=== PATIENT | male | born 1965 | race Caucasian/White ===

== ENCOUNTER 2017-08-05 17:20 | Inpatient (IN) | payer OTHER ==
[~2017-08-05] VITALS: Ht 172.7 cm; Wt 52.2 kg
[~2017-08-05 17:20] MED LIST: MIDAZOLAM HCL 2 MG/2 ML VIAL IV ONE; PHENYLEPH/NS 1000 MCG/10 ML SYR IV ONE; PROPOFOL 200 MG/20 ML AMP IV ONE; ROCURONIUM INJ 50 MG/5 ML SYRINGE IV PUSH ONE; ePHEDrine/NS 25 MG/5 ML SYRINGE IV ONE
[2017-08-05 17:21] VITALS: O2SAT 100
[2017-08-05] MEDS ORDERED: ceFAZolin 2 GM PREMIX 50 ML ONE (17:28)
[2017-08-05] MEDS ORDERED: DIPHTH/TETANUS/ACEL PERTUSSIS (BOOSTER) 0.5 ML VIAL/PFS IM ONE (17:29)
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
[2017-08-05 17:51] LABS: AUTOMATED NEUTROPHIL # 21.6 TH/MM3 (1.8-7.7); BASOPHIL # 0.1 TH/MM3 (0-0.2); BASOPHIL % 0.2 % (0.0-2.0); EOSINOPHIL # 0.2 TH/MM3 (0-0.4); EOSINOPHIL % 0.7 % (0.0-4.0); HEMOGLOBIN 13.2 GM/DL (13.0-17.0); LYMPHOCYTE # 1.7 TH/MM3 (1.0-4.8); MEAN CELL VOLUME 95.7 FL (80.0-100.0); MEAN CORPUSCULAR HEMOGLOBIN 32.4 PG (27.0-34.0); MEAN CORPUSCULAR HGB CONC 33.9 % (32.0-36.0); MEAN PLATELET VOLUME 6.8 FL (7.0-11.0); MONO % 5.2 % (0.0-8.0); MONOCYTE # 1.3 TH/MM3 (0-0.9); NEUT % 86.9 % (16.0-70.0); PLATELET COUNT 321 TH/MM3 (150-450); RED BLOOD COUNT 4.08 MIL/MM3 (4.50-5.90); RED CELL DISTRIBUTION WIDTH 12.9 % (11.6-17.2); WHITE BLOOD COUNT 24.8 TH/MM3 (4.0-11.0)
[2017-08-05] MEDS ORDERED: SUCCINYLCHOLINE CHLORIDE 200 MG/10 ML VIAL ONE (18:03)
[2017-08-05] MEDS ORDERED: ETOMIDATE 40 MG/20 ML VIAL ONE (18:03)
[2017-08-05 18:07] LABS: PROTHROMBIN TIME - PATIENT 9.8 SEC (9.8-11.6)
[2017-08-05] MEDS ORDERED: ONDANSETRON HCL 4 MG/2 ML VIAL ONE (18:08)
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
[2017-08-05] MEDS ORDERED: VANCOMYCIN HCL 1000 MG VIAL ONE (18:12)
[2017-08-05] MEDS ORDERED: cefTRIAXone 250 MG VIAL ONE (18:12)
[2017-08-05] MEDS ORDERED: MIDAZOLAM 100 MG/100 ML INJ 100 ML ONE (18:12)
[2017-08-05 18:15] VITALS: O2SAT 95
[2017-08-05] MEDS ORDERED: SUCCINYLCHOLINE CHLORIDE 100 MG/5 ML SYRINGE IV PUSH ONE ×2 (18:15→18:30)
[2017-08-05] MEDS ORDERED: PROPOFOL 1000 MG/100 ML INJ 100 ML ONE (18:15)
[2017-08-05] MEDS ORDERED: ETOMIDATE 20 MG/10 ML VIAL IV PUSH ONE ×2 (18:15→18:30)
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
[2017-08-05] MEDS ORDERED: ROCURONIUM INJ 50 MG/5 ML VIAL ONE (18:23)
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
[2017-08-05] MEDS ORDERED: PROPOFOL 1000 MG/100 ML INJ 100 ML IV PRN (18:30)
[2017-08-05] MEDS ORDERED: cefTRIAXone INJ 2,000 MG in SODIUM CHLORIDE 0.9% INJ 100 ML IV ONE (18:30)
[2017-08-05] MEDS ORDERED: IOHEXOL 350 MG/ML 10 ML VIAL (for RAD DIAG) IVCONTRAST ONE (18:30)
[2017-08-05] MEDS ORDERED: VANCOMYCIN INJ 1,000 MG in SODIUM CHLOR 0.9% 250 ML INJ 250 ML IV ONE (18:30)
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
[2017-08-05] MEDS ORDERED: LIDOCAINE 1%/EPINEPHrine 1:100,000 SOLN 20 ML VIAL ONE (18:51)
[2017-08-05] MEDS ORDERED: GENTAMICIN SULFATE 80 MG/2 ML VIAL ONE (18:51)
[2017-08-05] MEDS ORDERED: ceFAZolin INJ 1,000 MG VIAL ONE (18:51)
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
[2017-08-05] MEDS ORDERED: levETIRAcetam 500 MG/5 ML VIAL IV ONE (18:54)
[2017-08-05] MEDS ORDERED: MANNITOL INJ 50 ML ONE (18:56)
[2017-08-05] MEDS ORDERED: CHLORHEXIDINE GLUCONATE 2 % 1 PACK (2 CLOTHS) TOP PRN (19:00)
[2017-08-05] MEDS ORDERED: LACTULOSE SYRUP 20 GM/30 ML CUP PO PRN (19:00)
[2017-08-05] MEDS ORDERED: BISACODYL 10 MG SUPP RECTAL PRN (19:00)
[2017-08-05] MEDS ORDERED: MISCELLANEOUS NURSING INFORMATION XX SCH (19:00)
[2017-08-05] MEDS ORDERED: MAGNESIUM HYDROXIDE SUSP 30 ML CUP PO PRN (19:00)
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
--- NOTE | 2017-08-05 19:35 | RADRPT ---
EXAM DATE/TIME: 08/05/2017 18:58 [facility] COMPARISON: No previous studies available for comparison. INDICATIONS : Post procedure, intubation, ng tube placement. MEDICAL HISTORY : None. SURGICAL HISTORY : None. ENCOUNTER: Initial ACUITY: 1 day PAIN SCORE: 0/10 LOCATION: Bilateral chest FINDINGS: A single view of the chest demonstrates endotracheal tube in good position. NG coiled in stomach. No focal consolidation or effusion. Heart size normal. No pneumothorax. CONCLUSION: 1. Endotracheal tube and nasogastric tube in good position. No focal consolidation or effusion. Salo Alford MD on August 05, 2017 at 19:31 Board Certified Radiologist. This report was verified electronically.
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
[2017-08-05] MEDS: FAMOTIDINE 20 MG/2 ML VIAL IV PUSH SCH (21:00)
[2017-08-05] MEDS: DOCUSATE SODIUM 50 MG/SENNA 8.6 MG TAB PO SCH (21:00)
[2017-08-05 21:35] VITALS: O2SAT 100
[2017-08-05 22:00] VITALS: PULSE 75
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
--- NOTE | 2017-08-05 22:18 | PD.OP ---
Operative Report Date of Surgery: Aug 05, 2017 Preoperative Diagnosis: (1) Open skull fracture (2) Traumatic intraparenchymal hemorrhage Open depressed left temporal bone fracture Traumatic left temporal parenchymal hemorrhagic contusion Postoperative Diagnosis: (1) Open skull fracture (2) Traumatic intraparenchymal hemorrhage Open depressed left temporal bone fracture Traumatic left temporal parenchymal hemorrhagic contusion Procedure: 1. Elevation and debridement open depressed left temporal bone fracture 2. Evacuation left temporal hemorrhagic contusion 3. Placement of left frontal intracranial pressure monitor Anesthesia: General Surgeon: Marty Cameron Thread Twister(s): Mychal Larios Operation and Findings: Findings: Markedly depressed left temporal bone fracture. Significant underlying parenchymal injury with proximal contusion and significant parenchymal laceration. Procedure in detail: Patient was brought into the operative room and general endotracheal anesthesia induced without difficulty Lines were established for anesthesia WHIT hose and sequential compression devices were placed The patient was placed in supine position on the [place] horseshoe headrest with the head turned opposite the left temporal fracture site. The scalp overlying the fracture site was shaved with clippers and sterilely prepped and draped Appropriate timeout procedure was performed with all personnel present and in agreement Preoperative imaging studies were reviewed and the location and side of the fracture site and verified. 1% Xylocaine with epinephrine was used for local infiltration of the incision site which was made in a curvilinear fashion over the fracture site by working through the existing large left temporal laceration and extending the anterior edge medially and the posterior edge in a curvilinear fashion in front of the left ear. Left frontotemporal incision site was carried sharply down to the cranium. The periosteal elevator was used for subperiosteal elevation of the muscle and fascia away from the cranium at the fracture site. The deep self-retaining retractors were placed. The TPS drill with a 5 mm bone bur was used to remove bone at the edges of the fracture site sufficient to allow elevation of the bone edges. There is noted to be brain parenchyma coming forth through the left temporal incision prior to the start of the procedure with additional parenchyma noted coming forth through a dural laceration caused by the depressed fracture. A central depressed piece of bone was removed temporarily, allowing coagulation of the dura for hemostasis as well as elevation of the surrounding areas of fracture. The brain parenchyma was closely inspected. A rather large area of per external hematoma spontaneously decompressed once the fracture was removed and the dural edges elevated. The areas of bleeding at the left temporal parenchyma were carefully controlled with the bipolar forceps. The brain was soft and pulsatile after the hematoma was evacuated. The previously depressed piece of temporal bone was then replaced and all of the fragment secured with titanium maxillofacial plates and screws. The region was well irrigated with antibiotic irrigation There was no significant bleeding at the time of closure The 7 mm flat fluted drain was left at the epidural and subgaleal space and brought out through a incision at the left parietal region and secured to the skin with nylon suture. Closure was performed with 2-0 Vicryl interrupted for the temporalis muscle and galea with radha for the skin closure Next, a small incision was made in the left frontal scalp approximately 10 cm above the midline in the supraorbital region and carried sharply down to the cranium. The hand drill was used to place a single twist drill opening in the dura perforated with 18-gauge spinal needle. The ICP bolt was secured to the cranium The ICP read was zeroed and placed intracranially with initial ICP of 8 mm water with good waveform. A sterile dressing of Telfa 4 x 4's and a head stockinette was placed. All counts were correct at the end of the case Estimated blood loss was 200 cc No specimen was sent to pathology The patient was taken to recovery room in stable condition Marty Cameron MD Aug 05, 2017 22:18
[2017-08-05] MEDS: levETIRAcetam INJ 500 MG in SODIUM CHLORIDE 0.9% INJ 100 ML IV SCH (22:36)
[2017-08-05 22:50] VITALS: O2SAT 100
[2017-08-05] MEDS: fentaNYL DRIP 250 ML IV PRN (23:58)
[2017-08-05] MEDS: PROPOFOL 1000 MG/100 ML INJ 100 ML IV PRN (23:59)
[2017-08-06] VITALS (18 sets, daily range): BP systolic 104–152; BP diastolic 52–64; PULSE 55–77; RESP 16–18; TEMP 98–98.7; O2SAT 99–100
[2017-08-06] MEDS: CHLORHEXIDINE GLUCONATE 2 % 1 PACK (2 CLOTHS) TOP SCH (04:00)
--- NOTE | 2017-08-06 05:23 | RADRPT ---
EXAM DATE/TIME: 08/06/2017 04:44 [facility] COMPARISON: CT BRAIN W/O CONTRAST, August 05, 2017, 17:40. INDICATIONS : Evaluate head trauma. RADIATION DOSE: 54.79 CTDIvol (mGy) ; Tabletop CT Head MEDICAL HISTORY : Non-responsive. SURGICAL HISTORY : Non-responsive. ENCOUNTER: Subsequent ACUITY: 2 days PAIN SCALE: Non-responsive LOCATION: cranial TECHNIQUE: Multiple contiguous axial images were obtained of the head. Using automated exposure control and adj ustment of the mA and/or kV according to patient size, radiation dose was kept as low as reasonably a chievable to obtain optimal diagnostic quality images. DICOM format image data is available electro nically for review and comparison. FINDINGS: Interval surgical repair of the depressed left parietal skull fracture. No approximation of the frac ture fragments and craniotomy hardware is in place. There is a surgical drain in the subgaleal regio n of the left parietal. Intra-cerebral monitor probe in the left frontal region. There has been a s ignificant reduction in the amount of midline shift with less than 2 mm midline shift towards the rig ht and the left parietal mid convexity hematoma has decreased in size and now measures 2.6 cm (previo usly measured 3.1 cm. Subarachnoid hemorrhage in the mid and high convexities on the left side. No focal opacities or blood seen in the right hemisphere. The no intraventricular blood. The posterior fossa structures are grossly intact. CONCLUSION: Interval surgical repair of depressed left parietal skull fracture with good approximation of the dexter varium. Persistent left subarachnoid hemorrhage, decreasing in size left parietal hematoma and decre asing midline shift towards the right. Joselo Colunga MD on August 06, 2017 at 5:17 Board Certified Radiologist. This report was verified electronically.
--- NOTE | 2017-08-06 05:46 | RADRPT ---
EXAM DATE/TIME: 08/06/2017 05:05 [facility] COMPARISON: CHEST SINGLE AP, August 05, 2017, 18:58. INDICATIONS : Shortness of breath. MEDICAL HISTORY : None. SURGICAL HISTORY : None. ENCOUNTER: Subsequent ACUITY: 2 days PAIN SCORE: Non-responsive. LOCATION: Bilateral chest FINDINGS: ET tube tip well above the bella. Gastric tube traverses the [id number]. The lungs are symmetri marisol aerated. No focal infiltrates seen. Both hemidiaphragms are well delineated. Heart size is n ormal. CONCLUSION: The lungs are clear. Joselo Colunga MD on August 06, 2017 at 5:44 Board Certified Radiologist. This report was verified electronically.
[2017-08-06] MEDS: SODIUM CHLOR 0.9% 1000 ML INJ 1,000 ML IV SCH ×2 (05:55→16:29)
[2017-08-06 06:13] LABS: AUTOMATED NEUTROPHIL # 5.1 TH/MM3 (1.8-7.7); BASOPHIL % 0.4 % (0.0-2.0); EOSINOPHIL # 0.1 TH/MM3 (0-0.4); EOSINOPHIL % 1.5 % (0.0-4.0); HEMATOCRIT 30.2 % (39.0-51.0); HEMOGLOBIN 10.4 GM/DL (13.0-17.0); LYMPH % 15.4 % (9.0-44.0); MEAN CELL VOLUME 95.7 FL (80.0-100.0); MEAN CORPUSCULAR HGB CONC 34.4 % (32.0-36.0); MEAN PLATELET VOLUME 6.7 FL (7.0-11.0); MONO % 6.3 % (0.0-8.0); MONOCYTE # 0.4 TH/MM3 (0-0.9); NEUT % 76.4 % (16.0-70.0); PLATELET COUNT 206 TH/MM3 (150-450); RED BLOOD COUNT 3.16 MIL/MM3 (4.50-5.90); RED CELL DISTRIBUTION WIDTH 12.8 % (11.6-17.2); WHITE BLOOD COUNT 6.7 TH/MM3 (4.0-11.0)
[2017-08-06] MEDS ORDERED: SODIUM CHLOR 0.9% 1000 ML INJ 1,000 ML IV SCH (06:15)
[2017-08-06 06:24] LABS: INTERNATIONAL NORMALIZED RATIO 1.1 RATIO; PROTHROMBIN TIME - PATIENT 10.7 SEC (9.8-11.6)
[2017-08-06] MEDS ORDERED: MAGNESIUM SULFATE INJ 4 GM in SODIUM CHLORIDE 0.9% INJ 92 ML IV PRN (06:45)
[2017-08-06] MEDS ORDERED: MAGNESIUM OXIDE 400 MG TAB PO PRN (06:45)
[2017-08-06] MEDS ORDERED: RESP: ALBUTEROL 2.5 MG/IPRATROPIUM 0.5 MG NEB (PRN) NEB (06:45)
[2017-08-06] MEDS ORDERED: POTASSIUM CHLOR 20 MEQ PREMIX 100 ML IV PRN (06:45)
[2017-08-06] MEDS ORDERED: POTASSIUM CHLORIDE 20 MEQ PWD PACKET PO PRN (06:45)
[2017-08-06] MEDS ORDERED: MAGNESIUM SULFATE INJ 2 GM in SODIUM CHLORIDE 0.9% INJ 96 ML IV PRN (06:45)
[2017-08-06] MEDS ORDERED: POTASSIUM PHOSPHATE MONOBASIC 500 MG TAB PO/TUBE PRN (06:45)
[2017-08-06] MEDS ORDERED: POTASSIUM PHOSPHATE INJ 30 MMOL in SODIUM CHLOR 0.9% 250 ML INJ 250 ML IV PRN (06:45)
[2017-08-06] MEDS ORDERED: POTASSIUM PHOSPHATE MONOBASIC 500 MG TAB PO PRN (06:45)
[2017-08-06] MEDS ORDERED: POTASSIUM CHLOR 40 MEQ PREMIX 100 ML IV PRN ×2 (06:45)
[2017-08-06] MEDS ORDERED: SODIUM PHOSPHATE INJ 30 MMOL in SODIUM CHLOR 0.9% 250 ML INJ 240 ML IV PRN (06:45)
[2017-08-06 06:50] LABS: BICARBONATE 25.8 MEQ/L (21.0-32.0); CALCIUM 6.9 MG/DL (8.5-10.1); CREATININE 0.66 MG/DL (0.60-1.30)
[2017-08-06 07:04] LABS: CALCIUM-PROTEIN CORRECTED 7.8 MG/DL (8.5-10.1); TOTAL PROTEIN 5.4 GM/DL (6.4-8.2)
[2017-08-06] MEDS: CHLORHEXIDINE 0.12% (ORAL KIT) 15 ML CUP MT SCH ×2 (08:00→20:00)
[2017-08-06 08:25] LABS: MAGNESIUM 1.9 MG/DL (1.5-2.5); PHOSPHORUS 3.4 MG/DL (2.5-4.9)
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
[2017-08-06] MEDS: LACTULOSE SYRUP 20 GM/30 ML CUP PO SCH (09:18)
[2017-08-06] MEDS: DOCUSATE SODIUM 50 MG/SENNA 8.6 MG TAB PO SCH ×2 (09:18→20:24)
[2017-08-06] MEDS: levETIRAcetam INJ 500 MG in SODIUM CHLORIDE 0.9% INJ 100 ML IV SCH ×2 (09:19→20:23)
[2017-08-06] MEDS: PROPOFOL 1000 MG/100 ML INJ 100 ML IV PRN ×2 (09:21→15:08)
[2017-08-06] MEDS: FAMOTIDINE 20 MG/2 ML VIAL IV PUSH SCH ×2 (09:22→20:24)
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
[2017-08-06] MEDS: RESP: ALBUTEROL 2.5 MG/IPRATROPIUM 0.5 MG NEB (SCH) NEB ×3 (11:03→20:13)
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
[2017-08-06] MEDS: fentaNYL DRIP 250 ML IV PRN (15:06)
[2017-08-06] MEDS: PIPERACIL-TAZO 4.5 GM PREMIX 100 ML IV SCH ×2 (15:06→20:22)
[2017-08-06] MEDS: SODIUM CHLORIDE 23.4% INJ 188 MEQ in SODIUM CHLOR 0.9% 1000 ML INJ 1,000 ML IV SCH (15:18)
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
[2017-08-07] VITALS (19 sets, daily range): BP systolic 92–118; BP diastolic 49–61; PULSE 59–100; RESP 14–18; TEMP 98–98.8; O2SAT 100
[2017-08-07] MEDS: PROPOFOL 1000 MG/100 ML INJ 100 ML IV PRN ×3 (00:11→20:26)
[2017-08-07] MEDS ORDERED: NOREPINEPHRINE 4 MG/4 ML AMP ONE ×2 (01:19→14:47)
[2017-08-07] MEDS: PIPERACIL-TAZO 4.5 GM PREMIX 100 ML IV SCH ×4 (02:39→20:23)
[2017-08-07] MEDS: CHLORHEXIDINE GLUCONATE 2 % 1 PACK (2 CLOTHS) TOP SCH (04:00)
[2017-08-07] MEDS: RESP: ALBUTEROL 2.5 MG/IPRATROPIUM 0.5 MG NEB (SCH) NEB ×4 (04:10→19:48)
[2017-08-07 06:17] LABS: AUTOMATED NEUTROPHIL # 5.3 TH/MM3 (1.8-7.7); BASOPHIL % 0.6 % (0.0-2.0); EOSINOPHIL # 0.3 TH/MM3 (0-0.4); EOSINOPHIL % 4.3 % (0.0-4.0); HEMATOCRIT 28.1 % (39.0-51.0); HEMOGLOBIN 9.9 GM/DL (13.0-17.0); LYMPH % 16.5 % (9.0-44.0); LYMPHOCYTE # 1.3 TH/MM3 (1.0-4.8); MEAN CORPUSCULAR HEMOGLOBIN 34.2 PG (27.0-34.0); MEAN CORPUSCULAR HGB CONC 35.2 % (32.0-36.0); MONO % 11.4 % (0.0-8.0); MONOCYTE # 0.9 TH/MM3 (0-0.9); NEUT % 67.2 % (16.0-70.0); PLATELET COUNT 189 TH/MM3 (150-450); RED CELL DISTRIBUTION WIDTH 13.1 % (11.6-17.2); WHITE BLOOD COUNT 7.8 TH/MM3 (4.0-11.0)
[2017-08-07 07:00] LABS: BICARBONATE 23.5 MEQ/L (21.0-32.0); CALCIUM 7.3 MG/DL (8.5-10.1); CREATININE 0.71 MG/DL (0.60-1.30)
[2017-08-07 07:38] LABS: CALCIUM-PROTEIN CORRECTED 8.4 MG/DL (8.5-10.1); TOTAL PROTEIN 5.1 GM/DL (6.4-8.2)
[2017-08-07] MEDS: CHLORHEXIDINE 0.12% (ORAL KIT) 15 ML CUP MT SCH ×2 (08:00→20:24)
[2017-08-07] MEDS: LACTULOSE SYRUP 20 GM/30 ML CUP PO SCH (08:04)
[2017-08-07] MEDS: FAMOTIDINE 20 MG/2 ML VIAL IV PUSH SCH ×2 (08:05→20:23)
[2017-08-07] MEDS: levETIRAcetam INJ 500 MG in SODIUM CHLORIDE 0.9% INJ 100 ML IV SCH ×2 (08:05→20:23)
[2017-08-07] MEDS: DOCUSATE SODIUM 50 MG/SENNA 8.6 MG TAB PO SCH ×2 (08:06→20:22)
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
[2017-08-07] MEDS: fentaNYL DRIP 250 ML IV PRN (10:25)
[2017-08-07] MEDS: SODIUM CHLORIDE 23.4% INJ 188 MEQ in SODIUM CHLOR 0.9% 1000 ML INJ 1,000 ML IV SCH (10:30)
[2017-08-07] MEDS ORDERED: TERBUTALINE INJ 1 MG/ML AMP SQ PRN (15:15)
[2017-08-07] MEDS ORDERED: NOREPINEPHRINE INJ 4 MG in SODIUM CHLOR 0.9% 250 ML INJ 246 ML IV PRN (15:15)
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
[2017-08-08] VITALS (15 sets, daily range): BP systolic 99–143; BP diastolic 54–96; PULSE 66–117; RESP 18–21; TEMP 97.6–99.7; O2SAT 94–100
[2017-08-08] MEDS: PIPERACIL-TAZO 4.5 GM PREMIX 100 ML IV SCH ×4 (02:40→21:42)
[2017-08-08] MEDS: CHLORHEXIDINE GLUCONATE 2 % 1 PACK (2 CLOTHS) TOP SCH (04:00)
[2017-08-08] MEDS: RESP: ALBUTEROL 2.5 MG/IPRATROPIUM 0.5 MG NEB (SCH) NEB ×3 (04:26→21:16)
[2017-08-08] MEDS: fentaNYL DRIP 250 ML IV PRN (05:20)
[2017-08-08 07:01] LABS: AUTOMATED NEUTROPHIL # 4.1 TH/MM3 (1.8-7.7); BASOPHIL % 0.3 % (0.0-2.0); EOSINOPHIL # 0.3 TH/MM3 (0-0.4); EOSINOPHIL % 4.5 % (0.0-4.0); HEMATOCRIT 25.5 % (39.0-51.0); HEMOGLOBIN 8.8 GM/DL (13.0-17.0); LYMPH % 17.3 % (9.0-44.0); MEAN CELL VOLUME 95.9 FL (80.0-100.0); MEAN CORPUSCULAR HEMOGLOBIN 32.8 PG (27.0-34.0); MEAN CORPUSCULAR HGB CONC 34.2 % (32.0-36.0); MEAN PLATELET VOLUME 7.5 FL (7.0-11.0); MONO % 9.6 % (0.0-8.0); MONOCYTE # 0.6 TH/MM3 (0-0.9); NEUT % 68.3 % (16.0-70.0); PLATELET COUNT 164 TH/MM3 (150-450); RED BLOOD COUNT 2.66 MIL/MM3 (4.50-5.90); RED CELL DISTRIBUTION WIDTH 12.5 % (11.6-17.2)
[2017-08-08 07:43] LABS: BICARBONATE 23.2 MEQ/L (21.0-32.0); CALCIUM 7.4 MG/DL (8.5-10.1); CREATININE 0.62 MG/DL (0.60-1.30)
[2017-08-08] MEDS: CHLORHEXIDINE 0.12% (ORAL KIT) 15 ML CUP MT SCH ×2 (08:00→20:00)
[2017-08-08 08:05] LABS: CALCIUM-PROTEIN CORRECTED 8.8 MG/DL (8.5-10.1); TOTAL PROTEIN 4.7 GM/DL (6.4-8.2)
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
[2017-08-08] MEDS: levETIRAcetam INJ 500 MG in SODIUM CHLORIDE 0.9% INJ 100 ML IV SCH ×2 (08:45→21:42)
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
[2017-08-08] MEDS: SODIUM CHLORIDE 23.4% INJ 188 MEQ in SODIUM CHLOR 0.9% 1000 ML INJ 1,000 ML IV SCH (08:54)
[2017-08-08] MEDS: DOCUSATE SODIUM 50 MG/SENNA 8.6 MG TAB PO SCH ×2 (08:55→21:00)
[2017-08-08] MEDS: LACTULOSE SYRUP 20 GM/30 ML CUP PO SCH (08:55)
[2017-08-08] MEDS: FAMOTIDINE 20 MG/2 ML VIAL IV PUSH SCH (08:55)
[2017-08-08] MEDS ORDERED: POTASSIUM CHLORIDE 25 MEQ EFFERVESCENT TAB PO ONE (09:00)
[2017-08-08] MEDS ORDERED: FUROSEMIDE 20 MG/2 ML VIAL IV PUSH ONE (09:00)
--- NOTE | 2017-08-08 11:07 | RADRPT ---
EXAM DATE/TIME: 08/08/2017 10:15 [place] COMPARISON: CHEST SINGLE AP, August 06, 2017, 5:05. INDICATIONS : Evaluate lung status. Respirator disease. MEDICAL HISTORY : None. SURGICAL HISTORY : None. ENCOUNTER: Subsequent ACUITY: 3 days PAIN SCORE: Non-responsive. LOCATION: Bilateral chest FINDINGS: A single view of the chest demonstrates the lungs to be symmetrically aerated without evidence of mas s, infiltrate or effusion. The cardiomediastinal contours are unremarkable and stable. There is an e ndotracheal tube and NG tube in place. There is no pneumothorax. No significant changes compared to t he prior study. CONCLUSION: No acute pulmonary infiltrates. Stable exam compared to the prior study. Aureliano Ferrer MD on August 08, 2017 at 11:04 Board Certified Radiologist. This report was verified electronically.
[2017-08-08] MEDS: SODIUM CHLOR 0.9% 1000 ML INJ 1,000 ML IV SCH (11:13)
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
[2017-08-08] MEDS: DEXMEDETOMIDINE INJ 200 MCG in SODIUM CHLORIDE 0.9% INJ 50 ML IV PRN ×4 (11:34→16:26)
[2017-08-08] MEDS ORDERED: VALPROIC ACID SYRUP 250 MG/5 ML UDC PO SCH (12:45)
[2017-08-08] MEDS ORDERED: MORPHINE SULFATE 2 MG/ML INJ IV PUSH PRN (13:30)
[2017-08-08] MEDS: HALOPERIDOL LACTATE 5 MG/ML AMP IV PUSH PRN ×2 (13:53→19:28)
[2017-08-08] MEDS ORDERED: MIDAZOLAM HCL 2 MG/2 ML VIAL IV PUSH PRN (15:00)
[2017-08-08] MEDS ORDERED: LIDOCAINE 1%/EPINEPHrine 1:100,000 SOLN 20 ML VIAL INFIL ONE (15:45)
[2017-08-08] MEDS ORDERED: DEXMEDETOMIDINE INJ 400 MCG in SODIUM CHLORIDE 0.9% INJ 96 ML IV PRN (18:00)
[2017-08-08] MEDS: DEXMEDETOMIDINE INJ 1,000 MCG in SODIUM CHLOR 0.9% 250 ML INJ 240 ML IV PRN (19:44)
[2017-08-08] MEDS: VALPROATE INJ 250 MG in SODIUM CHLORIDE 0.9% INJ 100 ML IV SCH (21:41)
[2017-08-09] VITALS (13 sets, daily range): BP systolic 106–148; BP diastolic 61–78; PULSE 56–99; RESP 18–27; TEMP 98.7–99; O2SAT 97–100
[2017-08-09] MEDS: SODIUM CHLOR 0.9% 1000 ML INJ 1,000 ML IV SCH (02:53)
[2017-08-09] MEDS: PIPERACIL-TAZO 4.5 GM PREMIX 100 ML IV SCH ×4 (03:28→21:48)
[2017-08-09] MEDS: CHLORHEXIDINE GLUCONATE 2 % 1 PACK (2 CLOTHS) TOP SCH (04:00)
[2017-08-09] MEDS: RESP: ALBUTEROL 2.5 MG/IPRATROPIUM 0.5 MG NEB (SCH) NEB ×5 (04:10→21:11)
[2017-08-09] MEDS: VALPROATE INJ 250 MG in SODIUM CHLORIDE 0.9% INJ 100 ML IV SCH ×3 (07:04→21:30)
[2017-08-09] MEDS ORDERED: chlordiazePOXIDE 25 MG CAP PO PRN (07:15)
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
[2017-08-09 07:47] LABS: AUTOMATED NEUTROPHIL # 5.7 TH/MM3 (1.8-7.7); BASOPHIL % 0.3 % (0.0-2.0); EOSINOPHIL # 0.2 TH/MM3 (0-0.4); HEMATOCRIT 31.3 % (39.0-51.0); HEMOGLOBIN 11.1 GM/DL (13.0-17.0); LYMPH % 14.4 % (9.0-44.0); LYMPHOCYTE # 1.1 TH/MM3 (1.0-4.8); MEAN CELL VOLUME 94.6 FL (80.0-100.0); MEAN CORPUSCULAR HEMOGLOBIN 33.4 PG (27.0-34.0); MEAN CORPUSCULAR HGB CONC 35.3 % (32.0-36.0); MEAN PLATELET VOLUME 7.6 FL (7.0-11.0); MONOCYTE # 0.5 TH/MM3 (0-0.9); NEUT % 75.3 % (16.0-70.0); PLATELET COUNT 210 TH/MM3 (150-450); RED BLOOD COUNT 3.31 MIL/MM3 (4.50-5.90); RED CELL DISTRIBUTION WIDTH 12.2 % (11.6-17.2); WHITE BLOOD COUNT 7.6 TH/MM3 (4.0-11.0)
[2017-08-09] MEDS: QUEtiapine FUMARATE 25 MG TAB PO SCH ×2 (08:00→20:00)
[2017-08-09] MEDS: chlordiazePOXIDE 25 MG CAP PO SCH ×3 (08:00→20:00)
[2017-08-09 08:13] LABS: BICARBONATE 21.1 MEQ/L (21.0-32.0); CALCIUM 8.2 MG/DL (8.5-10.1); CREATININE 0.73 MG/DL (0.60-1.30)
[2017-08-09] MEDS: levETIRAcetam INJ 500 MG in SODIUM CHLORIDE 0.9% INJ 100 ML IV SCH ×2 (08:38→21:30)
[2017-08-09] MEDS: THIAMINE INJ 100 MG in SODIUM CHLORIDE 0.9% INJ 100 ML IV SCH (08:38)
[2017-08-09] MEDS: DOCUSATE SODIUM 50 MG/SENNA 8.6 MG TAB PO SCH ×2 (08:40→21:00)
[2017-08-09] MEDS: LACTULOSE SYRUP 20 GM/30 ML CUP PO SCH (08:40)
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
[2017-08-09] MEDS: DEXMEDETOMIDINE INJ 1,000 MCG in SODIUM CHLOR 0.9% 250 ML INJ 240 ML IV PRN (12:34)
--- NOTE | 2017-08-09 13:32 | HHI.NSPN ---
postop History Chief Complaint: Unable to obtain due to patient's clinical condition. Interval History Patient presently in ICU. Underwent extubation System Review Comments no change Exam Results Vital Signs Date Time Temp Pulse Resp B/P (MAP) Pulse Ox O2 Delivery O2 Flow Rate FiO2 08/09/17 08:28 100 21 08/09/17 08:00 70 08/09/17 07:00 Room Air 08/09/17 04:00 99.0 19 126/74 (91) 08/08/17 13:28 6.00 Intake and Output 08/09/17 08/09/17 08/10/17 08:00 16:00 00:00 Output Total 1000 ml Balance -1000 ml Physical Examination Cachetic appearing male Wakes up when stimulated Tends to follow some commands Trying to speak but unable to understand Tends to move all extremities Medical Decision Making Impression and Plan Stable from neurosurgical standpoint P: Repeat CT in am Total Minutes: 15 Rubens Cloud MD Aug 09, 2017 13:32
[2017-08-10] VITALS (13 sets, daily range): BP systolic 121–158; BP diastolic 59–85; PULSE 55–90; RESP 12–24; TEMP 98.4–98.7; O2SAT 94–100
[2017-08-10] MEDS: chlordiazePOXIDE 25 MG CAP PO SCH ×4 (02:00→20:00)
[2017-08-10] MEDS: MORPHINE SULFATE 2 MG/ML INJ IV PUSH PRN ×2 (02:13→20:00)
[2017-08-10] MEDS: hydrALAZINE HCL 20 MG/ML VIAL IV PUSH PRN (02:17)
[2017-08-10] MEDS ORDERED: MIDAZOLAM HCL 5 MG/5 ML VIAL IV PUSH ONE (02:45)
[2017-08-10] MEDS: PIPERACIL-TAZO 4.5 GM PREMIX 100 ML IV SCH ×4 (03:28→21:56)
[2017-08-10] MEDS: RESP: ALBUTEROL 2.5 MG/IPRATROPIUM 0.5 MG NEB (SCH) NEB ×2 (03:46→08:16)
[2017-08-10] MEDS: CHLORHEXIDINE GLUCONATE 2 % 1 PACK (2 CLOTHS) TOP SCH (04:00)
--- NOTE | 2017-08-10 05:56 | RADRPT ---
EXAM DATE/TIME: 08/10/2017 04:09 [facility] COMPARISON: CHEST SINGLE AP, August 08, 2017, 10:15. INDICATIONS : Infiltrate MEDICAL HISTORY : None. SURGICAL HISTORY : None. ENCOUNTER: Subsequent ACUITY: 4 - 6 days PAIN SCORE: Non-responsive. LOCATION: Bilateral chest FINDINGS: Patchy infiltrate developing right base. Left lung remains or is somewhat clear. No large effusion se en. No pneumothorax. CONCLUSION: Worsening right base infiltrate. Channing Vitale MD on August 10, 2017 at 5:54 Board Certified Radiologist. This report was verified electronically.
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
[2017-08-10] MEDS: VALPROATE INJ 250 MG in SODIUM CHLORIDE 0.9% INJ 100 ML IV SCH ×3 (06:50→22:00)
[2017-08-10] MEDS: THIAMINE INJ 100 MG in SODIUM CHLORIDE 0.9% INJ 100 ML IV SCH (07:52)
[2017-08-10] MEDS: levETIRAcetam INJ 500 MG in SODIUM CHLORIDE 0.9% INJ 100 ML IV SCH ×2 (07:52→20:38)
[2017-08-10] MEDS: DOCUSATE SODIUM 50 MG/SENNA 8.6 MG TAB PO SCH (07:53)
[2017-08-10] MEDS: LACTULOSE SYRUP 20 GM/30 ML CUP PO SCH (07:53)
[2017-08-10] MEDS: QUEtiapine FUMARATE 25 MG TAB PO SCH ×2 (08:20→20:00)
[2017-08-10] MEDS: DEXMEDETOMIDINE INJ 1,000 MCG in SODIUM CHLOR 0.9% 250 ML INJ 240 ML IV PRN (08:26)
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
--- NOTE | 2017-08-10 10:41 | HHI.NSPN ---
no change History Chief Complaint: Unable to obtain due to patient's clinical condition. Interval History Patient presently in ICU. Underwent extubation No significant change System Review Comments no change Exam Results Vital Signs Date Time Temp Pulse Resp B/P (MAP) Pulse Ox O2 Delivery O2 Flow Rate FiO2 08/10/17 08:17 98 21 08/10/17 06:00 80 08/10/17 04:00 98.4 23 135/67 (89) 08/09/17 20:00 Room Air 08/08/17 13:28 6.00 Intake and Output 08/10/17 08/10/17 08/11/17 08:00 16:00 00:00 Intake Total 200 ml Output Total 3300 ml Balance -3100 ml Physical Examination Cachetic appearing male Wakes up when stimulated Tends to follow some commands Trying to speak but unable to understand Tends to move all extremities Lab, Micro, Other Results Ct scan reviewed. Residual blood present Minimal shift Medical Decision Making Impression and Plan Stable from neurosurgical standpoint P: Continue support Total Minutes: 15 Rubens Cloud MD Aug 10, 2017 10:41
--- NOTE | 2017-08-10 10:42 | EKG ---
Date Performed: 08/09/2017 Time Performed: 23:58:32 PTAGE: 52 years EKG: Sinus rhythm Prolonged QT interval Borderline ECG NO PREVIOUS TRACING DOCTOR: Ata Burk Interpretating Date/Time 08/10/2017 10:41:01
[2017-08-10] MEDS: ENOXAPARIN SODIUM 40 MG/0.4 ML SYRINGE SQ SCH (11:17)
[2017-08-10] MEDS: SODIUM CHLOR 0.9% 1000 ML INJ 1,000 ML IV SCH (13:54)
[2017-08-10 14:27] LABS: AUTOMATED NEUTROPHIL # 6.3 TH/MM3 (1.8-7.7); BASOPHIL % 0.5 % (0.0-2.0); EOSINOPHIL # 0.1 TH/MM3 (0-0.4); EOSINOPHIL % 0.7 % (0.0-4.0); HEMATOCRIT 32.4 % (39.0-51.0); HEMOGLOBIN 11.5 GM/DL (13.0-17.0); LYMPH % 14.6 % (9.0-44.0); LYMPHOCYTE # 1.2 TH/MM3 (1.0-4.8); MEAN CORPUSCULAR HGB CONC 35.5 % (32.0-36.0); MEAN PLATELET VOLUME 7.2 FL (7.0-11.0); MONO % 8.4 % (0.0-8.0); MONOCYTE # 0.7 TH/MM3 (0-0.9); NEUT % 75.8 % (16.0-70.0); PLATELET COUNT 288 TH/MM3 (150-450); RED BLOOD COUNT 3.48 MIL/MM3 (4.50-5.90); RED CELL DISTRIBUTION WIDTH 12.4 % (11.6-17.2); WHITE BLOOD COUNT 8.3 TH/MM3 (4.0-11.0)
[2017-08-10 14:57] LABS: BICARBONATE 25.2 MEQ/L (21.0-32.0); CALCIUM 8.7 MG/DL (8.5-10.1); CREATININE 0.6 MG/DL (0.60-1.30)
[2017-08-10] MEDS: HALOPERIDOL LACTATE 5 MG/ML AMP IV PUSH PRN (15:00)
[2017-08-10] MEDS: POTASSIUM CHLOR 20 MEQ PREMIX 100 ML IV PRN (21:56)
[2017-08-11] VITALS (12 sets, daily range): BP systolic 129–157; BP diastolic 71–96; PULSE 64–87; RESP 18–28; TEMP 98–99.5; O2SAT 97–100
[2017-08-11] MEDS: HALOPERIDOL LACTATE 5 MG/ML AMP IV PUSH PRN ×2 (00:15→06:45)
[2017-08-11] MEDS: POTASSIUM CHLOR 20 MEQ PREMIX 100 ML IV PRN (00:15)
[2017-08-11] MEDS: MORPHINE SULFATE 2 MG/ML INJ IV PUSH PRN ×3 (00:45→07:00)
[2017-08-11] MEDS: hydrALAZINE HCL 20 MG/ML VIAL IV PUSH PRN (01:14)
[2017-08-11] MEDS: chlordiazePOXIDE 25 MG CAP PO SCH ×4 (02:09→23:18)
[2017-08-11] MEDS: CHLORHEXIDINE GLUCONATE 2 % 1 PACK (2 CLOTHS) TOP SCH (04:00)
[2017-08-11] MEDS: PIPERACIL-TAZO 4.5 GM PREMIX 100 ML IV SCH ×3 (04:07→16:05)
[2017-08-11 04:39] LABS: AUTOMATED NEUTROPHIL # 8.2 TH/MM3 (1.8-7.7); BASOPHIL # 0.1 TH/MM3 (0-0.2); BASOPHIL % 0.7 % (0.0-2.0); EOSINOPHIL % 0.4 % (0.0-4.0); HEMOGLOBIN 11.7 GM/DL (13.0-17.0); LYMPH % 9.1 % (9.0-44.0); LYMPHOCYTE # 0.9 TH/MM3 (1.0-4.8); MEAN CELL VOLUME 92.9 FL (80.0-100.0); MEAN CORPUSCULAR HGB CONC 35.5 % (32.0-36.0); MEAN PLATELET VOLUME 7.2 FL (7.0-11.0); NEUT % 79.8 % (16.0-70.0); PLATELET COUNT 316 TH/MM3 (150-450); RED BLOOD COUNT 3.55 MIL/MM3 (4.50-5.90); RED CELL DISTRIBUTION WIDTH 12.3 % (11.6-17.2); WHITE BLOOD COUNT 10.3 TH/MM3 (4.0-11.0)
[2017-08-11 05:15] LABS: BICARBONATE 23.3 MEQ/L (21.0-32.0); CALCIUM 8.8 MG/DL (8.5-10.1); CREATININE 0.64 MG/DL (0.60-1.30)
[2017-08-11] MEDS: VALPROATE INJ 250 MG in SODIUM CHLORIDE 0.9% INJ 100 ML IV SCH (05:49)
[2017-08-11] MEDS: levETIRAcetam INJ 500 MG in SODIUM CHLORIDE 0.9% INJ 100 ML IV SCH (07:59)
[2017-08-11] MEDS: QUEtiapine FUMARATE 25 MG TAB PO SCH ×2 (07:59→23:17)
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
[2017-08-11] MEDS: THIAMINE INJ 100 MG in SODIUM CHLORIDE 0.9% INJ 100 ML IV SCH (09:00)
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
[2017-08-11] MEDS: SODIUM CHLOR 0.9% 1000 ML INJ 1,000 ML IV SCH (10:32)
[2017-08-11] MEDS: ENOXAPARIN SODIUM 40 MG/0.4 ML SYRINGE SQ SCH (11:00)
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
[2017-08-11] MEDS ORDERED: POTASSIUM CHLORIDE 10 MEQ CONTROLLED RELEASE TAB PO ONE (14:30)
[2017-08-11] MEDS: RESP: ALBUTEROL 2.5 MG/IPRATROPIUM 0.5 MG NEB (SCH) NEB ×2 (15:20→19:55)
[2017-08-11] MEDS: VALPROATE INJ 500 MG in SODIUM CHLORIDE 0.9% INJ 100 ML IV SCH ×2 (16:05→23:18)
[2017-08-11] MEDS: levETIRAcetam 500 MG TAB PO SCH (23:17)
[2017-08-12] VITALS (10 sets, daily range): BP systolic 132–161; BP diastolic 73–88; PULSE 72–93; RESP 18–19; TEMP 97.5–99.4; O2SAT 99–100
[2017-08-12] MEDS: PIPERACIL-TAZO 4.5 GM PREMIX 100 ML IV SCH ×3 (00:41→09:24)
[2017-08-12] MEDS: chlordiazePOXIDE 25 MG CAP PO SCH ×2 (03:58→08:00)
[2017-08-12] MEDS: VALPROATE INJ 500 MG in SODIUM CHLORIDE 0.9% INJ 100 ML IV SCH ×3 (07:19→23:24)
[2017-08-12] MEDS: RESP: ALBUTEROL 2.5 MG/IPRATROPIUM 0.5 MG NEB (SCH) NEB ×4 (08:00→19:37)
[2017-08-12] MEDS: QUEtiapine FUMARATE 25 MG TAB PO SCH (08:00)
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
[2017-08-12] MEDS: THIAMINE HCL 100 MG TAB PO SCH ×2 (09:00→12:12)
[2017-08-12] MEDS: FOLIC ACID 1 MG TAB PO SCH (09:00)
[2017-08-12] MEDS: MULTIVITAMINS/MINERALS THERAPEUTIC TAB PO SCH ×2 (09:00→12:12)
[2017-08-12] MEDS: levETIRAcetam 500 MG TAB PO SCH (09:00)
[2017-08-12] MEDS: ENOXAPARIN SODIUM 40 MG/0.4 ML SYRINGE SQ SCH (09:24)
--- NOTE | 2017-08-12 10:14 | RADRPT ---
EXAM DATE/TIME: 08/12/2017 09:41 [place] COMPARISON: CT THORAX W CONTRAST, August 05, 2017, 17:55. CHEST SINGLE AP, August 10, 2017, 4:09. INDICATIONS : Infiltrate MEDICAL HISTORY : None. SURGICAL HISTORY : None. ENCOUNTER: Subsequent ACUITY: 1 week PAIN SCORE: Non-responsive. LOCATION: Bilateral chest FINDINGS: Improved aeration in the right lower lung zone. Cardiomediastinal contours are within normal limits. Remainder of the exam is unchanged. CONCLUSION: 1. Improved right lower lung zone airspace disease, suspect improved atelectasis. Moreno Gonzalez MD on August 12, 2017 at 10:09 Board Certified Radiologist. This report was verified electronically.
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
[2017-08-12] MEDS: QUEtiapine FUMARATE 100 MG TAB PO SCH ×2 (14:00→23:24)
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
[2017-08-13] VITALS (8 sets, daily range): BP systolic 117–174; BP diastolic 64–84; PULSE 70–104; RESP 18–20; TEMP 97.7–98.7; O2SAT 96–100
[2017-08-13] MEDS: SODIUM CHLOR 0.9% 1000 ML INJ 1,000 ML IV SCH ×2 (02:32→22:32)
[2017-08-13] MEDS: QUEtiapine FUMARATE 100 MG TAB PO SCH (06:08)
[2017-08-13] MEDS: VALPROATE INJ 500 MG in SODIUM CHLORIDE 0.9% INJ 100 ML IV SCH ×3 (06:09→21:52)
[2017-08-13 06:25] LABS: AUTOMATED NEUTROPHIL # 5.7 TH/MM3 (1.8-7.7); BASOPHIL % 0.5 % (0.0-2.0); EOSINOPHIL # 0.2 TH/MM3 (0-0.4); EOSINOPHIL % 1.8 % (0.0-4.0); HEMATOCRIT 36.4 % (39.0-51.0); HEMOGLOBIN 12.8 GM/DL (13.0-17.0); LYMPH % 21.2 % (9.0-44.0); LYMPHOCYTE # 1.9 TH/MM3 (1.0-4.8); MEAN CORPUSCULAR HEMOGLOBIN 32.6 PG (27.0-34.0); MEAN CORPUSCULAR HGB CONC 35.1 % (32.0-36.0); MEAN PLATELET VOLUME 6.6 FL (7.0-11.0); MONO % 12.3 % (0.0-8.0); MONOCYTE # 1.1 TH/MM3 (0-0.9); NEUT % 64.2 % (16.0-70.0); PLATELET COUNT 384 TH/MM3 (150-450); RED BLOOD COUNT 3.91 MIL/MM3 (4.50-5.90); RED CELL DISTRIBUTION WIDTH 12.5 % (11.6-17.2); WHITE BLOOD COUNT 8.9 TH/MM3 (4.0-11.0)
[2017-08-13 06:51] LABS: BICARBONATE 26.4 MEQ/L (21.0-32.0); CALCIUM 8.6 MG/DL (8.5-10.1); CREATININE 0.67 MG/DL (0.60-1.30)
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
[2017-08-13] MEDS: THIAMINE HCL 100 MG TAB PO SCH (10:03)
[2017-08-13] MEDS: MULTIVITAMINS/MINERALS THERAPEUTIC TAB PO SCH (10:03)
[2017-08-13] MEDS: FOLIC ACID 1 MG TAB PO SCH (10:10)
[2017-08-13] MEDS: ENOXAPARIN SODIUM 40 MG/0.4 ML SYRINGE SQ SCH (10:20)
[2017-08-13] MEDS: HALOPERIDOL LACTATE 5 MG/ML AMP IV PUSH PRN (10:20)
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
[2017-08-13] MEDS: QUEtiapine FUMARATE 25 MG TAB PO SCH ×2 (14:52→21:52)
[2017-08-13] MEDS: RESP: ALBUTEROL 2.5 MG/IPRATROPIUM 0.5 MG NEB (SCH) NEB ×2 (15:07→19:01)
[2017-08-13] MEDS: MORPHINE SULFATE 2 MG/ML INJ IV PUSH PRN (23:08)
[2017-08-14] VITALS (8 sets, daily range): BP systolic 113–167; BP diastolic 55–78; PULSE 64–96; RESP 18–22; TEMP 97.2–98.3; O2SAT 96–100
[2017-08-14] MEDS: QUEtiapine FUMARATE 25 MG TAB PO SCH ×3 (05:23→21:11)
[2017-08-14] MEDS: VALPROATE INJ 500 MG in SODIUM CHLORIDE 0.9% INJ 100 ML IV SCH ×3 (05:24→21:13)
[2017-08-14] MEDS: MORPHINE SULFATE 2 MG/ML INJ IV PUSH PRN ×4 (05:24→21:12)
[2017-08-14] MEDS: MAGNESIUM HYDROXIDE SUSP 30 ML CUP PO SCH ×2 (06:30→18:18)
[2017-08-14] MEDS: RESP: ALBUTEROL 2.5 MG/IPRATROPIUM 0.5 MG NEB (SCH) NEB ×4 (07:58→20:25)
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
[2017-08-14] MEDS: MULTIVITAMINS/MINERALS THERAPEUTIC TAB PO SCH (10:14)
[2017-08-14] MEDS: DOCUSATE SODIUM 50 MG/SENNA 8.6 MG TAB PO SCH ×2 (10:14→21:00)
[2017-08-14] MEDS: FOLIC ACID 1 MG TAB PO SCH (10:14)
[2017-08-14] MEDS: THIAMINE HCL 100 MG TAB PO SCH (10:14)
[2017-08-14] MEDS: ENOXAPARIN SODIUM 40 MG/0.4 ML SYRINGE SQ SCH (10:33)
[2017-08-14] MEDS ORDERED: HALOPERIDOL LACTATE 5 MG/ML AMP IV PUSH PRN (14:00)
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
[2017-08-15] VITALS (10 sets, daily range): BP systolic 111–136; BP diastolic 58–63; PULSE 61–82; RESP 18; TEMP 97.2–98.2; O2SAT 97–99
[2017-08-15] MEDS: VALPROATE INJ 500 MG in SODIUM CHLORIDE 0.9% INJ 100 ML IV SCH ×2 (06:20→13:52)
[2017-08-15] MEDS: QUEtiapine FUMARATE 25 MG TAB PO SCH ×3 (06:23→21:29)
[2017-08-15] MEDS: MAGNESIUM HYDROXIDE SUSP 30 ML CUP PO SCH ×2 (06:24→17:30)
[2017-08-15] MEDS: MULTIVITAMINS/MINERALS THERAPEUTIC TAB PO SCH (08:23)
[2017-08-15] MEDS: ACETAMINOPHEN/HYDROcodone 325 MG/5 MG TAB PO PRN ×3 (08:23→21:30)
[2017-08-15] MEDS: DOCUSATE SODIUM 50 MG/SENNA 8.6 MG TAB PO SCH ×2 (08:23→21:30)
[2017-08-15] MEDS: FOLIC ACID 1 MG TAB PO SCH (08:23)
[2017-08-15] MEDS: THIAMINE HCL 100 MG TAB PO SCH (08:24)
[2017-08-15] MEDS: RESP: ALBUTEROL 2.5 MG/IPRATROPIUM 0.5 MG NEB (SCH) NEB ×2 (08:47→12:18)
[2017-08-15] MEDS: MORPHINE SULFATE 2 MG/ML INJ IV PUSH PRN ×2 (10:38→17:30)
[2017-08-15] MEDS: ENOXAPARIN SODIUM 40 MG/0.4 ML SYRINGE SQ SCH (10:42)
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
[2017-08-15] MEDS: SODIUM CHLOR 0.9% 1000 ML INJ 1,000 ML IV SCH (13:52)
[2017-08-15] MEDS: VALPROIC ACID SYRUP 250 MG/5 ML UDC PO SCH (21:30)
[2017-08-15] MEDS: FAMOTIDINE 20 MG TAB PO SCH (21:30)
[2017-08-16 00:46] VITALS: BP 107/59; PULSE 80; RESP 18; TEMP 97.4; O2SAT 97
[2017-08-16] MEDS: ACETAMINOPHEN/HYDROcodone 325 MG/5 MG TAB PO PRN ×4 (04:31→23:49)
[2017-08-16 04:56] VITALS: BP 122/66; PULSE 80; RESP 20; TEMP 98.2; O2SAT 98
[2017-08-16] MEDS: QUEtiapine FUMARATE 25 MG TAB PO SCH ×3 (06:00→20:53)
[2017-08-16] MEDS: MAGNESIUM HYDROXIDE SUSP 30 ML CUP PO SCH ×3 (06:30→20:54)
[2017-08-16] MEDS ORDERED: LACTULOSE SYRUP 20 GM/30 ML CUP PO ONE (07:45)
[2017-08-16 09:01] VITALS: BP 121/68; PULSE 88; RESP 17; O2SAT 96
[2017-08-16] MEDS: MULTIVITAMINS/MINERALS THERAPEUTIC TAB PO SCH (09:07)
[2017-08-16] MEDS: DOCUSATE SODIUM 50 MG/SENNA 8.6 MG TAB PO SCH ×2 (09:07→20:53)
[2017-08-16] MEDS: FOLIC ACID 1 MG TAB PO SCH (09:07)
[2017-08-16] MEDS: FAMOTIDINE 20 MG TAB PO SCH ×2 (09:07→20:53)
[2017-08-16] MEDS: THIAMINE HCL 100 MG TAB PO SCH (09:07)
[2017-08-16] MEDS: VALPROIC ACID SYRUP 250 MG/5 ML UDC PO SCH ×2 (09:08→20:53)
[2017-08-16] MEDS: SODIUM CHLOR 0.9% 1000 ML INJ 1,000 ML IV SCH (10:32)
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
[2017-08-16] MEDS: ENOXAPARIN SODIUM 40 MG/0.4 ML SYRINGE SQ SCH (12:02)
[2017-08-16 12:30] VITALS: BP 119/69; PULSE 87; RESP 17; TEMP 98; O2SAT 97
[2017-08-16 16:15] VITALS: BP 117/56; PULSE 89; RESP 18; TEMP 98.8; O2SAT 100
[2017-08-16 20:56] VITALS: BP 134/64; PULSE 71; RESP 16; TEMP 97.5; O2SAT 97
[2017-08-17] VITALS (7 sets, daily range): BP systolic 108–145; BP diastolic 69–97; PULSE 87–111; RESP 16–18; TEMP 97–98.2; O2SAT 95–100
[2017-08-17] MEDS: ACETAMINOPHEN/HYDROcodone 325 MG/5 MG TAB PO PRN ×3 (04:26→19:41)
[2017-08-17] MEDS: QUEtiapine FUMARATE 25 MG TAB PO SCH ×3 (05:07→21:26)
[2017-08-17] MEDS: SODIUM CHLOR 0.9% 1000 ML INJ 1,000 ML IV SCH (06:21)
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
[2017-08-17] MEDS: THIAMINE HCL 100 MG TAB PO SCH (09:31)
[2017-08-17] MEDS: FAMOTIDINE 20 MG TAB PO SCH ×2 (09:31→19:42)
[2017-08-17] MEDS: DOCUSATE SODIUM 50 MG/SENNA 8.6 MG TAB PO SCH ×2 (09:31→19:41)
[2017-08-17] MEDS: VALPROIC ACID SYRUP 250 MG/5 ML UDC PO SCH ×2 (09:31→19:42)
[2017-08-17] MEDS: CLOTRIMAZOLE 1% CREAM 15 GM TOPICAL SCH ×2 (10:00→19:42)
[2017-08-17] MEDS: ENOXAPARIN SODIUM 40 MG/0.4 ML SYRINGE SQ SCH (10:41)
[2017-08-17] MEDS: MAGNESIUM HYDROXIDE SUSP 30 ML CUP PO SCH (18:30)
[2017-08-18] VITALS (9 sets, daily range): BP systolic 103–133; BP diastolic 57–77; PULSE 68–107; RESP 18–20; TEMP 97.4–98.2; O2SAT 97–100
[2017-08-18] MEDS: ACETAMINOPHEN/HYDROcodone 325 MG/5 MG TAB PO PRN ×4 (02:12→23:57)
[2017-08-18] MEDS: QUEtiapine FUMARATE 25 MG TAB PO SCH ×3 (05:08→20:40)
[2017-08-18] MEDS: MAGNESIUM HYDROXIDE SUSP 30 ML CUP PO SCH ×3 (06:04→17:49)
[2017-08-18] MEDS: VALPROIC ACID SYRUP 250 MG/5 ML UDC PO SCH ×2 (08:58→20:39)
[2017-08-18] MEDS: DOCUSATE SODIUM 50 MG/SENNA 8.6 MG TAB PO SCH ×2 (08:58→20:40)
[2017-08-18] MEDS: THIAMINE HCL 100 MG TAB PO SCH (08:58)
[2017-08-18] MEDS: FAMOTIDINE 20 MG TAB PO SCH ×2 (08:58→20:39)
[2017-08-18] MEDS: CLOTRIMAZOLE 1% CREAM 15 GM TOPICAL SCH ×2 (09:00→20:40)
[2017-08-18] MEDS: ENOXAPARIN SODIUM 40 MG/0.4 ML SYRINGE SQ SCH (11:27)
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
[2017-08-19] VITALS (7 sets, daily range): BP systolic 100–144; BP diastolic 63–82; PULSE 76–99; RESP 20; TEMP 97.5–98.6; O2SAT 97–100
[2017-08-19] MEDS: QUEtiapine FUMARATE 25 MG TAB PO SCH ×3 (06:20→20:51)
[2017-08-19] MEDS: ACETAMINOPHEN/HYDROcodone 325 MG/5 MG TAB PO PRN ×3 (06:20→23:32)
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
[2017-08-19] MEDS: FAMOTIDINE 20 MG TAB PO SCH ×2 (08:52→20:51)
[2017-08-19] MEDS: DOCUSATE SODIUM 50 MG/SENNA 8.6 MG TAB PO SCH ×2 (08:53→20:50)
[2017-08-19] MEDS: THIAMINE HCL 100 MG TAB PO SCH (08:53)
[2017-08-19] MEDS: VALPROIC ACID SYRUP 250 MG/5 ML UDC PO SCH ×2 (08:53→20:50)
[2017-08-19] MEDS: MAGNESIUM HYDROXIDE SUSP 30 ML CUP PO SCH (08:53)
[2017-08-19] MEDS: CLOTRIMAZOLE 1% CREAM 15 GM TOPICAL SCH ×2 (08:54→20:52)
[2017-08-19] MEDS: ENOXAPARIN SODIUM 40 MG/0.4 ML SYRINGE SQ SCH ×2 (11:00→11:35)
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
[2017-08-19] MEDS ORDERED: MORPHINE SULFATE 2 MG/ML INJ IV PUSH PRN (12:45)
[2017-08-20] VITALS (9 sets, daily range): BP systolic 111–156; BP diastolic 67–87; PULSE 79–108; RESP 17–18; TEMP 97.3–99.1; O2SAT 18–100
[2017-08-20] MEDS: MAGNESIUM HYDROXIDE SUSP 30 ML CUP PO SCH ×2 (05:16→18:36)
[2017-08-20] MEDS: QUEtiapine FUMARATE 25 MG TAB PO SCH ×3 (05:17→20:31)
[2017-08-20] MEDS: ACETAMINOPHEN/HYDROcodone 325 MG/5 MG TAB PO PRN (05:19)
[2017-08-20 05:51] LABS: AUTOMATED NEUTROPHIL # 4.6 TH/MM3 (1.8-7.7); BASOPHIL # 0.1 TH/MM3 (0-0.2); EOSINOPHIL # 0.2 TH/MM3 (0-0.4); HEMATOCRIT 35.4 % (39.0-51.0); HEMOGLOBIN 12.1 GM/DL (13.0-17.0); LYMPH % 29.3 % (9.0-44.0); LYMPHOCYTE # 2.4 TH/MM3 (1.0-4.8); MEAN CELL VOLUME 93.5 FL (80.0-100.0); MEAN CORPUSCULAR HEMOGLOBIN 31.9 PG (27.0-34.0); MEAN CORPUSCULAR HGB CONC 34.2 % (32.0-36.0); MEAN PLATELET VOLUME 6.9 FL (7.0-11.0); MONO % 10.1 % (0.0-8.0); MONOCYTE # 0.8 TH/MM3 (0-0.9); NEUT % 56.6 % (16.0-70.0); PLATELET COUNT 553 TH/MM3 (150-450); RED BLOOD COUNT 3.79 MIL/MM3 (4.50-5.90); RED CELL DISTRIBUTION WIDTH 12.2 % (11.6-17.2)
[2017-08-20 06:10] LABS: CREATININE 0.75 MG/DL (0.60-1.30)
[2017-08-20] MEDS: THIAMINE HCL 100 MG TAB PO SCH (08:26)
[2017-08-20] MEDS: DOCUSATE SODIUM 50 MG/SENNA 8.6 MG TAB PO SCH ×2 (08:26→20:31)
[2017-08-20] MEDS: FAMOTIDINE 20 MG TAB PO SCH (08:26)
[2017-08-20] MEDS: VALPROIC ACID SYRUP 250 MG/5 ML UDC PO SCH ×2 (08:26→20:30)
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
[2017-08-20] MEDS: CLOTRIMAZOLE 1% CREAM 15 GM TOPICAL SCH ×2 (10:23→20:35)
[2017-08-20] MEDS: ENOXAPARIN SODIUM 40 MG/0.4 ML SYRINGE SQ SCH (10:24)
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
[2017-08-21 01:42] VITALS: BP 122/72; PULSE 83; RESP 18; TEMP 98.2; O2SAT 98
[2017-08-21] MEDS: MAGNESIUM HYDROXIDE SUSP 30 ML CUP PO SCH ×2 (05:22→18:30)
[2017-08-21] MEDS: QUEtiapine FUMARATE 25 MG TAB PO SCH ×3 (05:22→21:20)
[2017-08-21 06:00] VITALS: BP 137/69; PULSE 97; RESP 16; TEMP 98.3; O2SAT 100
[2017-08-21 08:24] VITALS: BP 115/71; PULSE 79; RESP 18; TEMP 97.4; O2SAT 99
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
[2017-08-21] MEDS: VALPROIC ACID SYRUP 250 MG/5 ML UDC PO SCH ×2 (08:40→21:18)
[2017-08-21] MEDS: DOCUSATE SODIUM 50 MG/SENNA 8.6 MG TAB PO SCH ×2 (08:41→21:00)
[2017-08-21] MEDS: THIAMINE HCL 100 MG TAB PO SCH (08:41)
[2017-08-21] MEDS: CLOTRIMAZOLE 1% CREAM 15 GM TOPICAL SCH ×2 (09:00→21:22)
[2017-08-21] MEDS: ENOXAPARIN SODIUM 40 MG/0.4 ML SYRINGE SQ SCH (11:00)
[2017-08-21 11:58] VITALS: BP 135/77; PULSE 84; RESP 18; TEMP 98.1; O2SAT 96
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
[2017-08-21] MEDS: ACETAMINOPHEN/HYDROcodone 325 MG/5 MG TAB PO PRN ×2 (15:17→21:20)
[2017-08-21] MEDS ORDERED: HALOPERIDOL LACTATE 5 MG/ML AMP IM PRN (15:45)
[2017-08-21 16:02] VITALS: BP 137/89; PULSE 92; RESP 18; TEMP 97.7; O2SAT 98
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
[2017-08-21 21:20] VITALS: BP 150/69; PULSE 103; RESP 18; TEMP 98.3; O2SAT 97
[2017-08-22] VITALS (8 sets, daily range): BP systolic 121–148; BP diastolic 69–83; PULSE 73–101; RESP 18–19; TEMP 97.5–98.1; O2SAT 96–99
[2017-08-22] MEDS: MAGNESIUM HYDROXIDE SUSP 30 ML CUP PO SCH ×2 (06:04→18:30)
[2017-08-22] MEDS: QUEtiapine FUMARATE 25 MG TAB PO SCH ×3 (06:05→23:01)
[2017-08-22] MEDS: THIAMINE HCL 100 MG TAB PO SCH (08:11)
[2017-08-22] MEDS: VALPROIC ACID SYRUP 250 MG/5 ML UDC PO SCH ×2 (08:11→23:02)
[2017-08-22] MEDS: SENNOSIDES 8.6 MG TAB PO PRN ×2 (08:12→23:01)
[2017-08-22] MEDS: DOCUSATE SODIUM 50 MG/SENNA 8.6 MG TAB PO SCH ×2 (08:12→23:00)
[2017-08-22] MEDS: CLOTRIMAZOLE 1% CREAM 15 GM TOPICAL SCH ×2 (08:16→23:02)
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
[2017-08-22] MEDS: ENOXAPARIN SODIUM 40 MG/0.4 ML SYRINGE SQ SCH (11:00)
[2017-08-22] MEDS: ACETAMINOPHEN/HYDROcodone 325 MG/5 MG TAB PO PRN (23:01)
[2017-08-23] VITALS (7 sets, daily range): BP systolic 109–145; BP diastolic 57–87; PULSE 79–99; RESP 17–18; TEMP 97–98.2; O2SAT 96–99
[2017-08-23] MEDS: QUEtiapine FUMARATE 25 MG TAB PO SCH ×3 (06:13→20:33)
[2017-08-23] MEDS: MAGNESIUM HYDROXIDE SUSP 30 ML CUP PO SCH ×2 (06:13→18:05)
[2017-08-23] MEDS: THIAMINE HCL 100 MG TAB PO SCH (08:47)
[2017-08-23] MEDS: VALPROIC ACID SYRUP 250 MG/5 ML UDC PO SCH ×2 (08:47→20:33)
[2017-08-23] MEDS: CLOTRIMAZOLE 1% CREAM 15 GM TOPICAL SCH ×2 (08:47→20:33)
[2017-08-23] MEDS: DOCUSATE SODIUM 50 MG/SENNA 8.6 MG TAB PO SCH ×2 (08:48→20:33)
[2017-08-23] MEDS: ENOXAPARIN SODIUM 40 MG/0.4 ML SYRINGE SQ SCH (09:58)
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
[2017-08-23] MEDS: ACETAMINOPHEN/HYDROcodone 325 MG/5 MG TAB PO PRN (20:38)
[2017-08-24] VITALS (7 sets, daily range): BP systolic 100–147; BP diastolic 57–81; PULSE 75–91; RESP 17–20; TEMP 97.5–98.7; O2SAT 95–99
[2017-08-24] MEDS: QUEtiapine FUMARATE 25 MG TAB PO SCH ×3 (06:16→21:33)
[2017-08-24] MEDS: MAGNESIUM HYDROXIDE SUSP 30 ML CUP PO SCH ×2 (06:16→17:47)
[2017-08-24] MEDS: THIAMINE HCL 100 MG TAB PO SCH (08:17)
[2017-08-24] MEDS: DOCUSATE SODIUM 50 MG/SENNA 8.6 MG TAB PO SCH ×2 (08:17→21:00)
[2017-08-24] MEDS: VALPROIC ACID SYRUP 250 MG/5 ML UDC PO SCH ×2 (08:17→21:27)
[2017-08-24] MEDS: CLOTRIMAZOLE 1% CREAM 15 GM TOPICAL SCH ×2 (08:18→21:00)
[2017-08-24] MEDS: ENOXAPARIN SODIUM 40 MG/0.4 ML SYRINGE SQ SCH (08:41)
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
[2017-08-24] MEDS: ACETAMINOPHEN/HYDROcodone 325 MG/5 MG TAB PO PRN (21:28)
[2017-08-25] VITALS (9 sets, daily range): BP systolic 114–154; BP diastolic 56–82; PULSE 76–87; RESP 18–22; TEMP 97.3–98.4; O2SAT 96–99
[2017-08-25] MEDS: MAGNESIUM HYDROXIDE SUSP 30 ML CUP PO SCH ×2 (07:06→17:40)
[2017-08-25] MEDS: QUEtiapine FUMARATE 25 MG TAB PO SCH ×3 (07:06→21:13)
[2017-08-25] MEDS: ACETAMINOPHEN/HYDROcodone 325 MG/5 MG TAB PO PRN ×3 (07:32→21:12)
[2017-08-25] MEDS: VALPROIC ACID SYRUP 250 MG/5 ML UDC PO SCH ×2 (09:00→21:12)
[2017-08-25] MEDS: THIAMINE HCL 100 MG TAB PO SCH (09:00)
[2017-08-25] MEDS: DOCUSATE SODIUM 50 MG/SENNA 8.6 MG TAB PO SCH ×2 (09:00→21:12)
[2017-08-25] MEDS: CLOTRIMAZOLE 1% CREAM 15 GM TOPICAL SCH ×2 (09:01→21:12)
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
[2017-08-25] MEDS: ENOXAPARIN SODIUM 40 MG/0.4 ML SYRINGE SQ SCH (11:00)
[2017-08-26 04:00] VITALS: BP 123/56; PULSE 76; RESP 20; TEMP 97.1; O2SAT 98
[2017-08-26] MEDS: MAGNESIUM HYDROXIDE SUSP 30 ML CUP PO SCH ×3 (05:42→22:43)
[2017-08-26] MEDS: QUEtiapine FUMARATE 25 MG TAB PO SCH ×3 (05:43→22:40)
[2017-08-26 07:01] LABS: AUTOMATED NEUTROPHIL # 3.8 TH/MM3 (1.8-7.7); BASOPHIL # 0.1 TH/MM3 (0-0.2); EOSINOPHIL # 0.4 TH/MM3 (0-0.4); EOSINOPHIL % 5.2 % (0.0-4.0); HEMATOCRIT 37.3 % (39.0-51.0); HEMOGLOBIN 12.9 GM/DL (13.0-17.0); LYMPH % 33.6 % (9.0-44.0); LYMPHOCYTE # 2.7 TH/MM3 (1.0-4.8); MEAN CELL VOLUME 96.1 FL (80.0-100.0); MEAN CORPUSCULAR HEMOGLOBIN 33.3 PG (27.0-34.0); MEAN CORPUSCULAR HGB CONC 34.7 % (32.0-36.0); MEAN PLATELET VOLUME 7.5 FL (7.0-11.0); MONO % 11.9 % (0.0-8.0); NEUT % 48.3 % (16.0-70.0); PLATELET COUNT 433 TH/MM3 (150-450); RED BLOOD COUNT 3.88 MIL/MM3 (4.50-5.90); RED CELL DISTRIBUTION WIDTH 12.8 % (11.6-17.2)
[2017-08-26 07:21] LABS: BICARBONATE 30.4 MEQ/L (21.0-32.0); CALCIUM 8.9 MG/DL (8.5-10.1); CREATININE 0.8 MG/DL (0.60-1.30)
[2017-08-26 08:19] VITALS: BP 133/79; PULSE 88; RESP 20; TEMP 98.6; O2SAT 100
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
[2017-08-26 08:55] VITALS: PULSE 121
[2017-08-26] MEDS: THIAMINE HCL 100 MG TAB PO SCH (08:58)
[2017-08-26] MEDS: DOCUSATE SODIUM 50 MG/SENNA 8.6 MG TAB PO SCH ×2 (08:58→22:43)
[2017-08-26] MEDS: VALPROIC ACID SYRUP 250 MG/5 ML UDC PO SCH ×2 (08:58→22:43)
[2017-08-26] MEDS: ACETAMINOPHEN/HYDROcodone 325 MG/5 MG TAB PO PRN ×3 (08:59→22:42)
[2017-08-26] MEDS: CLOTRIMAZOLE 1% CREAM 15 GM TOPICAL SCH ×2 (08:59→22:43)
[2017-08-26] MEDS: ENOXAPARIN SODIUM 40 MG/0.4 ML SYRINGE SQ SCH (11:00)
[2017-08-26 11:27] VITALS: BP 154/64; PULSE 91; RESP 20; TEMP 98.1; O2SAT 98
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
[2017-08-26 17:16] VITALS: BP 134/63; PULSE 88; RESP 20; TEMP 97.7; O2SAT 98
[2017-08-26 20:00] VITALS: BP 114/71; PULSE 86; RESP 22; TEMP 98.2; O2SAT 97
[2017-08-27] VITALS: BP 151/92; PULSE 86; RESP 20; TEMP 97.7; O2SAT 99
[2017-08-27 04:00] VITALS: BP 133/69; PULSE 90; RESP 22; TEMP 97.4; O2SAT 100
[2017-08-27] MEDS: QUEtiapine FUMARATE 25 MG TAB PO SCH ×3 (05:49→23:01)
[2017-08-27] MEDS: MAGNESIUM HYDROXIDE SUSP 30 ML CUP PO SCH ×2 (05:55→18:01)
[2017-08-27 08:17] VITALS: BP 122/76; PULSE 86; RESP 20; TEMP 98.4; O2SAT 98
[2017-08-27] MEDS: ENOXAPARIN SODIUM 40 MG/0.4 ML SYRINGE SQ SCH (11:00)
[2017-08-27] MEDS: THIAMINE HCL 100 MG TAB PO SCH (11:18)
[2017-08-27] MEDS: VALPROIC ACID SYRUP 250 MG/5 ML UDC PO SCH ×2 (11:18→23:01)
[2017-08-27] MEDS: DOCUSATE SODIUM 50 MG/SENNA 8.6 MG TAB PO SCH ×2 (11:18→23:00)
[2017-08-27] MEDS: CLOTRIMAZOLE 1% CREAM 15 GM TOPICAL SCH ×2 (11:20→23:01)
[2017-08-27 11:29] VITALS: BP 151/60; PULSE 82; RESP 20; TEMP 97.9; O2SAT 98
[2017-08-27 15:53] VITALS: BP 125/58; PULSE 77; RESP 20; TEMP 98.1; O2SAT 98
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
[2017-08-27 20:53] VITALS: BP 139/66; PULSE 92; RESP 18; TEMP 97.2; O2SAT 97
[2017-08-27] MEDS: ACETAMINOPHEN/HYDROcodone 325 MG/5 MG TAB PO PRN (23:00)
[2017-08-28 01:11] VITALS: BP 130/82; PULSE 78; RESP 18; TEMP 98.2; O2SAT 95
[2017-08-28 05:29] VITALS: BP 117/72; PULSE 75; RESP 18; TEMP 97.6; O2SAT 98
[2017-08-28] MEDS: MAGNESIUM HYDROXIDE SUSP 30 ML CUP PO SCH ×2 (06:30→18:30)
[2017-08-28] MEDS: QUEtiapine FUMARATE 25 MG TAB PO SCH ×3 (06:53→21:39)
[2017-08-28 08:00] VITALS: BP 131/84; PULSE 80; RESP 18; TEMP 97.8; O2SAT 99
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
[2017-08-28] MEDS: DOCUSATE SODIUM 50 MG/SENNA 8.6 MG TAB PO SCH ×2 (09:00→21:40)
[2017-08-28] MEDS ORDERED: INFLUENZA VIRUS VACCINE (QUADRIVALENT) 0.5 ML SYR IM ONE (10:00)
[2017-08-28] MEDS: VALPROIC ACID SYRUP 250 MG/5 ML UDC PO SCH ×2 (10:38→21:40)
[2017-08-28] MEDS: THIAMINE HCL 100 MG TAB PO SCH (10:39)
[2017-08-28] MEDS: CLOTRIMAZOLE 1% CREAM 15 GM TOPICAL SCH ×2 (10:39→21:00)
[2017-08-28] MEDS: ENOXAPARIN SODIUM 40 MG/0.4 ML SYRINGE SQ SCH (10:40)
[2017-08-28 12:00] VITALS: BP 127/64; PULSE 84; RESP 18; TEMP 98; O2SAT 98
[2017-08-28] MEDS ORDERED: SERO25TA PO (13:34)
[2017-08-28 16:00] VITALS: BP 142/76; PULSE 96; RESP 18; TEMP 98; O2SAT 97
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
[2017-08-28 20:30] VITALS: BP 116/59; PULSE 93; RESP 17; TEMP 99; O2SAT 98
[2017-08-28] MEDS: ACETAMINOPHEN 325 MG TAB PO PRN (21:44)
[2017-08-29] MEDS: QUEtiapine FUMARATE 25 MG TAB PO SCH ×4 (06:19→21:37)
[2017-08-29] MEDS: MAGNESIUM HYDROXIDE SUSP 30 ML CUP PO SCH ×2 (06:19→17:48)
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
[2017-08-29] MEDS: VALPROIC ACID SYRUP 250 MG/5 ML UDC PO SCH ×2 (08:42→21:37)
[2017-08-29] MEDS: THIAMINE HCL 100 MG TAB PO SCH (08:44)
[2017-08-29] MEDS: DOCUSATE SODIUM 50 MG/SENNA 8.6 MG TAB PO SCH ×2 (08:45→21:37)
[2017-08-29] MEDS: CLOTRIMAZOLE 1% CREAM 15 GM TOPICAL SCH ×2 (08:45→21:37)
[2017-08-29] MEDS: ACETAMINOPHEN 325 MG TAB PO PRN ×3 (10:20→21:37)
[2017-08-29] MEDS: ENOXAPARIN SODIUM 40 MG/0.4 ML SYRINGE SQ SCH (11:00)
[2017-08-29 12:00] VITALS: BP 131/72; PULSE 88; RESP 16; TEMP 98; O2SAT 97
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
[2017-08-29 20:45] VITALS: BP 110/68; PULSE 62; RESP 17; TEMP 98.1; O2SAT 96
[2017-08-30 00:30] VITALS: BP 115/60; PULSE 58; RESP 16; TEMP 97.1; O2SAT 98
[2017-08-30] MEDS: QUEtiapine FUMARATE 25 MG TAB PO SCH ×3 (06:00→22:16)
[2017-08-30] MEDS: MAGNESIUM HYDROXIDE SUSP 30 ML CUP PO SCH ×3 (06:36→22:14)
[2017-08-30 08:00] VITALS: BP 118/67; PULSE 76; RESP 19; TEMP 97.1; O2SAT 99
[2017-08-30] MEDS: THIAMINE HCL 100 MG TAB PO SCH (09:02)
[2017-08-30] MEDS: VALPROIC ACID SYRUP 250 MG/5 ML UDC PO SCH ×2 (09:02→22:16)
[2017-08-30] MEDS: DOCUSATE SODIUM 50 MG/SENNA 8.6 MG TAB PO SCH ×2 (09:02→21:00)
[2017-08-30] MEDS: CLOTRIMAZOLE 1% CREAM 15 GM TOPICAL SCH ×2 (09:03→22:25)
[2017-08-30] MEDS: ENOXAPARIN SODIUM 40 MG/0.4 ML SYRINGE SQ SCH (11:00)
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
[2017-08-30 12:00] VITALS: BP 116/63; PULSE 73; RESP 18; TEMP 98.1; O2SAT 99
[2017-08-30 16:00] VITALS: BP 108/72; PULSE 76; RESP 18; TEMP 98.1; O2SAT 97
[2017-08-30 21:02] VITALS: BP 125/61; PULSE 87; RESP 18; TEMP 98.1; O2SAT 97
[2017-08-31] VITALS: BP 127/67; PULSE 89; RESP 20; TEMP 98; O2SAT 97
[2017-08-31 04:00] VITALS: BP 107/73; PULSE 89; RESP 18; TEMP 97.5; O2SAT 99
[2017-08-31] MEDS: QUEtiapine FUMARATE 25 MG TAB PO SCH ×3 (06:00→20:52)
[2017-08-31 08:00] VITALS: BP 119/76; PULSE 78; RESP 18; TEMP 97.7; O2SAT 97
[2017-08-31] MEDS: DOCUSATE SODIUM 50 MG/SENNA 8.6 MG TAB PO SCH ×2 (09:27→20:51)
[2017-08-31] MEDS: THIAMINE HCL 100 MG TAB PO SCH (09:27)
[2017-08-31] MEDS: VALPROIC ACID SYRUP 250 MG/5 ML UDC PO SCH ×2 (09:27→20:51)
[2017-08-31] MEDS: CLOTRIMAZOLE 1% CREAM 15 GM TOPICAL SCH ×2 (09:27→20:53)
[2017-08-31] MEDS: ENOXAPARIN SODIUM 40 MG/0.4 ML SYRINGE SQ SCH (10:58)
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
[2017-08-31 16:00] VITALS: BP 118/68; PULSE 71; RESP 19; TEMP 97.6; O2SAT 100
[2017-08-31] MEDS: MAGNESIUM HYDROXIDE SUSP 30 ML CUP PO SCH (18:30)
[2017-08-31 20:56] VITALS: BP 125/85; PULSE 84; RESP 18; TEMP 97.9; O2SAT 97
[2017-09-01 01:56] VITALS: BP 128/61; PULSE 78; RESP 18; TEMP 97.7; O2SAT 100
[2017-09-01 04:51] LABS: AUTOMATED NEUTROPHIL # 4.4 TH/MM3 (1.8-7.7); BASOPHIL % 0.6 % (0.0-2.0); EOSINOPHIL # 0.3 TH/MM3 (0-0.4); EOSINOPHIL % 3.8 % (0.0-4.0); HEMATOCRIT 34.8 % (39.0-51.0); HEMOGLOBIN 11.9 GM/DL (13.0-17.0); LYMPHOCYTE # 2.5 TH/MM3 (1.0-4.8); MEAN CELL VOLUME 95.9 FL (80.0-100.0); MEAN CORPUSCULAR HEMOGLOBIN 32.7 PG (27.0-34.0); MEAN CORPUSCULAR HGB CONC 34.1 % (32.0-36.0); MEAN PLATELET VOLUME 7.4 FL (7.0-11.0); MONO % 9.4 % (0.0-8.0); MONOCYTE # 0.7 TH/MM3 (0-0.9); NEUT % 55.2 % (16.0-70.0); PLATELET COUNT 242 TH/MM3 (150-450); RED BLOOD COUNT 3.63 MIL/MM3 (4.50-5.90); RED CELL DISTRIBUTION WIDTH 13.3 % (11.6-17.2); WHITE BLOOD COUNT 7.9 TH/MM3 (4.0-11.0)
[2017-09-01 05:08] LABS: BICARBONATE 28.8 MEQ/L (21.0-32.0); CREATININE 0.79 MG/DL (0.60-1.30)
[2017-09-01] MEDS: QUEtiapine FUMARATE 25 MG TAB PO SCH ×3 (06:00→22:13)
[2017-09-01 06:25] VITALS: BP 114/76; PULSE 82; RESP 16; TEMP 98.6; O2SAT 98
[2017-09-01] MEDS: MAGNESIUM HYDROXIDE SUSP 30 ML CUP PO SCH ×2 (06:30→18:30)
[2017-09-01 08:00] VITALS: BP 122/63; PULSE 76; RESP 18; TEMP 97.8; O2SAT 98
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
[2017-09-01] MEDS: DOCUSATE SODIUM 50 MG/SENNA 8.6 MG TAB PO SCH ×2 (10:29→22:13)
[2017-09-01] MEDS: THIAMINE HCL 100 MG TAB PO SCH (10:29)
[2017-09-01] MEDS: VALPROIC ACID SYRUP 250 MG/5 ML UDC PO SCH ×2 (10:30→22:13)
[2017-09-01] MEDS: ENOXAPARIN SODIUM 40 MG/0.4 ML SYRINGE SQ SCH (10:31)
[2017-09-01] MEDS: CLOTRIMAZOLE 1% CREAM 15 GM TOPICAL SCH ×2 (10:31→21:00)
[2017-09-01] MEDS: ACETAMINOPHEN 325 MG TAB PO PRN (10:36)
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
[2017-09-01 12:00] VITALS: BP 108/78; PULSE 71; RESP 19; TEMP 97.7; O2SAT 98
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
[2017-09-01 16:00] VITALS: BP 128/59; PULSE 80; RESP 19; TEMP 97.1; O2SAT 95
[2017-09-01 20:00] VITALS: BP 146/71; PULSE 71; RESP 20; TEMP 97.7; O2SAT 95
[2017-09-01] MEDS: ACETAMINOPHEN/HYDROcodone 325 MG/5 MG TAB PO PRN (22:14)
[2017-09-02] VITALS: BP 121/66; PULSE 78; RESP 18; TEMP 97.2; O2SAT 99
[2017-09-02] MEDS: QUEtiapine FUMARATE 25 MG TAB PO SCH ×3 (05:18→21:12)
[2017-09-02] MEDS: MAGNESIUM HYDROXIDE SUSP 30 ML CUP PO SCH ×2 (05:19→15:00)
[2017-09-02 05:30] VITALS: BP 110/63; PULSE 66; RESP 18; TEMP 97.6; O2SAT 93
[2017-09-02 08:30] VITALS: BP 128/74; PULSE 88; RESP 18; TEMP 98.4; O2SAT 96
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
[2017-09-02] MEDS: CLOTRIMAZOLE 1% CREAM 15 GM TOPICAL SCH ×2 (09:00→21:00)
[2017-09-02] MEDS: ENOXAPARIN SODIUM 40 MG/0.4 ML SYRINGE SQ SCH (10:41)
[2017-09-02] MEDS: THIAMINE HCL 100 MG TAB PO SCH (10:41)
[2017-09-02] MEDS: VALPROIC ACID SYRUP 250 MG/5 ML UDC PO SCH ×3 (10:41→18:24)
[2017-09-02] MEDS: DOCUSATE SODIUM 50 MG/SENNA 8.6 MG TAB PO SCH ×2 (10:41→21:12)
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
[2017-09-02 12:59] VITALS: BP 123/67; PULSE 85; RESP 18; TEMP 98.3; O2SAT 98
[2017-09-02 16:00] VITALS: BP 121/59; PULSE 83; RESP 16; TEMP 98.7; O2SAT 97
[2017-09-02 20:49] VITALS: BP 174/77; PULSE 56; RESP 18; TEMP 98.5; O2SAT 97
[2017-09-02] MEDS: ACETAMINOPHEN/HYDROcodone 325 MG/5 MG TAB PO PRN (21:12)
[2017-09-03] VITALS: BP 126/75; PULSE 67; RESP 20; TEMP 97; O2SAT 97
[2017-09-03 04:00] VITALS: BP 129/68; PULSE 85; RESP 18; TEMP 97.1; O2SAT 95
[2017-09-03] MEDS: QUEtiapine FUMARATE 25 MG TAB PO SCH ×3 (06:00→22:50)
[2017-09-03] MEDS: MAGNESIUM HYDROXIDE SUSP 30 ML CUP PO SCH ×2 (06:30→18:30)
[2017-09-03 08:40] VITALS: BP 111/56; PULSE 80; RESP 20; TEMP 98.6; O2SAT 99
[2017-09-03] MEDS: CLOTRIMAZOLE 1% CREAM 15 GM TOPICAL SCH ×2 (09:00→22:53)
[2017-09-03] MEDS: DOCUSATE SODIUM 50 MG/SENNA 8.6 MG TAB PO SCH ×2 (10:09→22:50)
[2017-09-03] MEDS: VALPROIC ACID SYRUP 250 MG/5 ML UDC PO SCH ×3 (10:09→18:56)
[2017-09-03] MEDS: THIAMINE HCL 100 MG TAB PO SCH (10:09)
[2017-09-03] MEDS: ENOXAPARIN SODIUM 40 MG/0.4 ML SYRINGE SQ SCH (11:00)
[2017-09-03 12:20] VITALS: BP 124/66; PULSE 80; RESP 20; TEMP 97.6; O2SAT 99
[2017-09-03 16:00] VITALS: BP 126/61; PULSE 75; RESP 20; TEMP 97.6; O2SAT 99
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
[2017-09-03] MEDS: ACETAMINOPHEN/HYDROcodone 325 MG/5 MG TAB PO PRN (18:56)
[2017-09-03 20:45] VITALS: BP 121/87; PULSE 80; RESP 17; TEMP 97.9; O2SAT 98
[2017-09-04 00:30] VITALS: BP 120/80; PULSE 68; RESP 18; TEMP 97.7; O2SAT 99
[2017-09-04 04:15] VITALS: BP 115/67; PULSE 62; RESP 17; TEMP 98; O2SAT 99
[2017-09-04] MEDS: QUEtiapine FUMARATE 25 MG TAB PO SCH ×3 (06:00→22:09)
[2017-09-04] MEDS: MAGNESIUM HYDROXIDE SUSP 30 ML CUP PO SCH ×2 (06:09→18:30)
[2017-09-04 08:00] VITALS: BP 116/56; PULSE 76; RESP 20; TEMP 98; O2SAT 97
[2017-09-04] MEDS: CLOTRIMAZOLE 1% CREAM 15 GM TOPICAL SCH ×2 (09:00→22:10)
[2017-09-04] MEDS: VALPROIC ACID SYRUP 250 MG/5 ML UDC PO SCH ×3 (10:54→17:41)
[2017-09-04] MEDS: THIAMINE HCL 100 MG TAB PO SCH (10:54)
[2017-09-04] MEDS: DOCUSATE SODIUM 50 MG/SENNA 8.6 MG TAB PO SCH ×2 (10:54→22:10)
[2017-09-04] MEDS: ENOXAPARIN SODIUM 40 MG/0.4 ML SYRINGE SQ SCH (11:00)
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
[2017-09-04 16:12] VITALS: BP 132/85; PULSE 84; RESP 20; TEMP 98; O2SAT 99
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
[2017-09-04 21:25] VITALS: BP 131/69; PULSE 87; RESP 20; TEMP 97.6; O2SAT 99
[2017-09-04] MEDS: ACETAMINOPHEN/HYDROcodone 325 MG/5 MG TAB PO PRN (22:10)
[2017-09-05] VITALS: BP 115/65; PULSE 70; RESP 18; TEMP 97.7; O2SAT 98
[2017-09-05 04:00] VITALS: BP 113/73; PULSE 73; RESP 20; TEMP 97.4; O2SAT 97
[2017-09-05] MEDS: QUEtiapine FUMARATE 25 MG TAB PO SCH ×3 (06:00→23:03)
[2017-09-05] MEDS: MAGNESIUM HYDROXIDE SUSP 30 ML CUP PO SCH ×2 (06:17→16:39)
[2017-09-05 08:36] VITALS: BP 117/83; PULSE 73; RESP 18; TEMP 97.7; O2SAT 97
[2017-09-05] MEDS: DOCUSATE SODIUM 50 MG/SENNA 8.6 MG TAB PO SCH ×2 (09:00→23:04)
[2017-09-05] MEDS: THIAMINE HCL 100 MG TAB PO SCH (09:44)
[2017-09-05] MEDS: VALPROIC ACID SYRUP 250 MG/5 ML UDC PO SCH ×3 (09:44→16:44)
[2017-09-05] MEDS: CLOTRIMAZOLE 1% CREAM 15 GM TOPICAL SCH ×2 (09:45→21:00)
[2017-09-05] MEDS: ENOXAPARIN SODIUM 40 MG/0.4 ML SYRINGE SQ SCH (11:00)
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
[2017-09-05 12:47] VITALS: BP 121/73; PULSE 82; RESP 18; TEMP 97.9; O2SAT 98
[2017-09-05 16:00] VITALS: BP 119/72; PULSE 81; RESP 18; TEMP 98.1; O2SAT 97
[2017-09-05] MEDS: ACETAMINOPHEN/HYDROcodone 325 MG/5 MG TAB PO PRN ×2 (16:45→23:10)
[2017-09-05 20:00] VITALS: BP 133/83; PULSE 76; RESP 17; TEMP 98.1; O2SAT 98
[2017-09-06] VITALS: BP 116/68; PULSE 68; RESP 16; TEMP 97.7; O2SAT 99
[2017-09-06 04:00] VITALS: BP 107/63; PULSE 71; RESP 15; TEMP 97.3; O2SAT 98
[2017-09-06] MEDS: QUEtiapine FUMARATE 25 MG TAB PO SCH ×4 (06:00→20:48)
[2017-09-06] MEDS: MAGNESIUM HYDROXIDE SUSP 30 ML CUP PO SCH ×3 (06:23→20:47)
[2017-09-06 08:00] VITALS: BP 128/68; PULSE 79; RESP 16; TEMP 98.1; O2SAT 98
[2017-09-06] MEDS: THIAMINE HCL 100 MG TAB PO SCH (10:08)
[2017-09-06] MEDS: DOCUSATE SODIUM 50 MG/SENNA 8.6 MG TAB PO SCH ×2 (10:08→20:48)
[2017-09-06] MEDS: CLOTRIMAZOLE 1% CREAM 15 GM TOPICAL SCH ×2 (10:09→20:49)
[2017-09-06] MEDS: VALPROIC ACID SYRUP 250 MG/5 ML UDC PO SCH ×3 (10:09→17:54)
[2017-09-06] MEDS: ACETAMINOPHEN/HYDROcodone 325 MG/5 MG TAB PO PRN ×2 (10:13→17:55)
[2017-09-06] MEDS: ENOXAPARIN SODIUM 40 MG/0.4 ML SYRINGE SQ SCH (10:17)
[2017-09-06 12:00] VITALS: BP 126/65; PULSE 91; RESP 18; TEMP 97.4; O2SAT 99
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
[2017-09-06 16:00] VITALS: BP 121/70; PULSE 77; RESP 18; TEMP 97.9; O2SAT 98
[2017-09-06 20:00] VITALS: BP 119/65; PULSE 81; RESP 18; TEMP 97.4; O2SAT 97
[2017-09-07 00:48] VITALS: BP 110/63; PULSE 70; RESP 18; TEMP 97.4; O2SAT 99
[2017-09-07 04:05] VITALS: BP 108/67; PULSE 70; RESP 18; TEMP 97.6; O2SAT 98
[2017-09-07] MEDS: QUEtiapine FUMARATE 25 MG TAB PO SCH (05:59)
[2017-09-07 08:00] VITALS: BP 131/75; PULSE 71; RESP 16; TEMP 97.6; O2SAT 97
[2017-09-07] MEDS: CLOTRIMAZOLE 1% CREAM 15 GM TOPICAL SCH (09:05)
[2017-09-07] MEDS: VALPROIC ACID SYRUP 250 MG/5 ML UDC PO SCH (09:05)
[2017-09-07] MEDS: DOCUSATE SODIUM 50 MG/SENNA 8.6 MG TAB PO SCH (09:05)
[2017-09-07] MEDS: THIAMINE HCL 100 MG TAB PO SCH (09:05)
[2017-09-07] MEDS: ENOXAPARIN SODIUM 40 MG/0.4 ML SYRINGE SQ SCH (11:20)
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
== END 2017-09-07 12:03 | disposition left against medical advice (07) | DRG 25 ==
LOC: NEPI 17:20 → NEDA 18:18 → EDBD 18:18 → N03A 21:31 → N05B 08-11 14:10
PROVIDERS: ADMIT Surgery Trauma Surgery; ATTEND Surgery Trauma Surgery
PROC: 00900ZZ Drainage of Brain, Open Approach (ICD-10-PCS; 2017-08-05)
PROC: 00H032Z Insertion of Monitoring Device into Brain, Percutaneous Approach (ICD-10-PCS; 2017-08-05)
PROC: 4A103BD Monitoring of Intracranial Pressure, Percutaneous Approach (ICD-10-PCS; 2017-08-05)
PROC: 0BH17EZ Insertion of Endotracheal Airway into Trachea, Via Natural or Artificial Opening (ICD-10-PCS; 2017-08-05)
PROC: 5A1945Z Respiratory Ventilation, 24-96 Consecutive Hours (ICD-10-PCS; 2017-08-05)
PROC: 0HQ0XZZ Repair Scalp Skin, External Approach (ICD-10-PCS; 2017-08-05)
PROC: 0NS Head and Facial Bones, Reposition (ICD-10-PCS; principal; 2017-08-05 19:14)
DX: S02.19XB Other fracture of base of skull, initial encounter for open fracture (principal); J96.90 Respiratory failure, unspecified, unspecified whether with hypoxia or hypercapnia; R64 Cachexia; F01.51 Vascular dementia, unspecified severity, with behavioral disturbance; I95.9 Hypotension, unspecified; S31.000A Unspecified open wound of lower back and pelvis without penetration into retroperitoneum, initial encounter; E87.6 Hypokalemia; F02.81 Dementia in other diseases classified elsewhere, unspecified severity, with behavioral disturbance; Z68.1 Body mass index [BMI] 19.9 or less, adult; D72.829 Elevated white blood cell count, unspecified; S01.01XA Laceration without foreign body of scalp, initial encounter; S02.0XXA Fracture of vault of skull, initial encounter for closed fracture; S06.2X9A Diffuse traumatic brain injury with loss of consciousness of unspecified duration, initial encounter; G93.2 Benign intracranial hypertension; S06.1X9A Traumatic cerebral edema with loss of consciousness of unspecified duration, initial encounter; S06.6X9A Traumatic subarachnoid hemorrhage with loss of consciousness of unspecified duration, initial encounter; R47.81 Slurred speech; R21 Rash and other nonspecific skin eruption; Y09 Assault by unspecified means
CPT/HCPCS: 12004; 31500; 43753; 51702; 70450; 70486; 70498; 71010; 71260; 72125; 72170; 73120; 74177; 76937; 80048; 80307; 81003; 82435; 82565; 82805; 82947; 83735; 84100; 84132; 84155; 84295; 84520; 85025; 85610; 85730; 86850; 86900; 86901; 87641; 90471; 90715; 93005; 94002; 94003; 94150; 94640; 94664; 94667; 94668; 96374; 96375; 99291; C1713; G0390; J0330; J0360; J0690; J0696; J1580; J1630; J1650; J1940; J1953; J2150; J2250; J2270; J2370; J2405; J2543; J3010; J3370; J3411; J3480; J7030; J7050; Q9967